=== PATIENT | female | born 1940 | race Caucasian/White ===

== ENCOUNTER 2016-12-29 14:28 | Inpatient (IN) | payer OTHER, MEDICARE ==
[2016-12-29] MEDS ORDERED: MAGNESIUM HYDROX 2400MG/30ML ORAL SUSPENSION 30 ML CUP PO PRN (16:40)
[2016-12-29] MEDS ORDERED: MAG HYDROX/AL HYDROX/SIMETH 30 ML UNIT-DOSE CUP PO PRN (16:40)
[2016-12-29] MEDS ORDERED: oxyCODONE HCL 5 MG TABLET PO PRN ×2 (16:49→16:51)
[2016-12-29] MEDS ORDERED: ONDANSETRON 4 MG/2 ML VIAL IVPB PRN (16:49)
[2016-12-29] MEDS ORDERED: ACETAMINOPHEN 325 MG TABLET (FP) ONE (17:10)
[2016-12-29] MEDS: ACETAMINOPHEN 325 MG TABLET (FP) PO SCH ×2 (17:15→22:26)
[2016-12-29] MEDS: FERROUS SO4 325 MG TABLET (FP) PO SCH (17:21)
[2016-12-29] MEDS: PANTOPRAZOLE 40 MG TABLET (FP) PO SCH (17:21)
[2016-12-29] MEDS: traMADol HCL 50 MG TABLET PO SCH ×2 (17:21→22:26)
[2016-12-29 17:59] VITALS: BMI 40.8
[2016-12-29 18:36] LABS: MCH 27.4 pg (25.7-33.7); MCHC 33.2 g/dl (32.0-36.0); MEAN CELL VOLUME 82.6 fl (80-96); PLATELET COUNT 310 K/MM3 (134-434); RDW 15.3 % (11.6-15.6)
[2016-12-29] MEDS ORDERED: PT OWN MED DRAWER 7, Y5N ONE (21:09)
[2016-12-29] MEDS: CELECOXIB 200 MG CAPSULE PO SCH (21:42)
[2016-12-29] MEDS: DOCUSATE SODIUM 100 MG CAPSULE (FP) PO SCH (21:43)
[2016-12-29] MEDS: ROSUVASTATIN CA 40 MG TABLET PO SCH (21:43)
[2016-12-29] MEDS: oxyCODONE HCL 10 MG SUSTAINED ACTING TABLET PO SCH (21:44)
[2016-12-29] MEDS: ASCORBIC ACID 500 MG TABLET (FP) PO SCH (21:45)
[2016-12-29] MEDS: SENNOSIDES/DOCUSATE COMBO (SENNA PLUS) TABLET (UD) PO SCH (21:45)
[2016-12-29] MEDS: CIPROFLOXACIN 500 MG TABLET (RESTRICTED TO ID) PO SCH (21:50)
[2016-12-29] MEDS: SODIUM CHLORIDE 1,000 ML IV SCH (22:27)
[2016-12-30] MEDS: ACETAMINOPHEN 325 MG TABLET (FP) PO SCH ×3 (05:54→23:13)
[2016-12-30] MEDS: traMADol HCL 50 MG TABLET PO SCH ×4 (05:57→23:44)
[2016-12-30] MEDS: LEVOTHYROXINE NA 25 MCG TABLET (FP) PO SCH (06:10)
--- NOTE | 2016-12-30 07:45 | HP ---
Admitting History and Physical - Admission Chief Complaint: Left periprosthetic hip fracture History of Present Illness: 76 year old female presents in regard to her left hip. She is status post a left posterior total hip arthroplasty by Dr. Dixon approximately 3 weeks ago. A few days ago, patient fell onto her left hip. She presented to the Emergency Department and was diagnosed with a periprosthetic hip fracture. History Source: Patient - Past Medical History Cardiovascular: Yes: HTN, Hyperlipdemia ...: No Psych: Yes: Depression, Other (Insomnia) Endocrine: Yes: Hypothyroidism - Past Surgical History Additional Past Surgical History: Left posterior total hip arthroplasty approximately 3 weeks ago - Dr. Dixon See written H&P for additional surgical history - Smoking History Smoking history: Never smoked Have you smoked in the past 12 months: No - Alcohol/Substance Use Hx Alcohol Use: No Home Medications - Allergies Allergies/Adverse Reactions: Allergies Allergy/AdvReac Type Severity Reaction Status Date / Time No Known Allergies Allergy Verified 12/29/16 16:08 - Home Medications Home Medications: Ambulatory Orders Ambien 10 mg PO HS 12/29/16 Ciprofloxacin HCl 500 mg PO BID 12/29/16 Crestor 40 mg PO DAILY 12/29/16 Hydrochlorothiazide 25 mg PO DAILY 12/29/16 Lexapro - 20 mg PO DAILY 12/29/16 Lisinopril 40 mg PO DAILY 12/29/16 Oxycodone HCl 5 mg PO PRN PRN 12/29/16 Oxycodone HCl 10 mg PO PRN PRN 12/29/16 Synthroid 25 mcg PO DAILY 12/29/16 Toprol Xl 50 mg PO DAILY 12/29/16 Wellbutrin Xl 150 mg PO DAILY 12/29/16 Review of Systems - Review of Systems Musculoskeletal: reports: Extremity Pain (Left hip) Physical Examination Vital Signs: Vital Signs Temperature 98.1 F 12/30/16 06:30 Pulse Rate 62 12/30/16 06:30 Respiratory Rate 18 12/30/16 06:30 Blood Pressure 126/48 12/30/16 06:30 O2 Sat by Pulse Oximetry (%) 95 12/30/16 06:30 Constitutional: Yes: Well Nourished, No Distress Eyes: Yes: Conjunctiva Clear HENT: Yes: Atraumatic, Normocephalic Neck: Yes: Supple Cardiovascular: Yes: Regular Rate and Rhythm Respiratory: Yes: Regular Gastrointestinal: Yes: Soft ...Rectal Exam: Yes: Deferred Musculoskeletal: Yes: Other (Pain and swelling of left hip, inability to ambulate) Labs: CBC, BMP 12/29/16 18:05 Assessment/Plan 76 year old female status post a mechanical fall resulting in a left periprosthetic hip fracture. She is status post a left posterior total hip arthroplasty by Dr. Dixon approximately 3 weeks ago. Proceed with left hip revisional arthroplasty with ORIF left periprosthetic hip fracture.
--- NOTE | 2016-12-30 08:02 | HP ---
Admitting History and Physical - Admission Chief Complaint: 76yo female s/p L MARINA @ [facility] ~3wks ago. Was doing well in rehab , about to be discharged home, slipped when getting up to go to bathroom late at night. Fell and sustained a left periprosthetic femur fx. Pt has PMH of HTN , HLD, bilateral hip replacements, carpal tunnel surgery. Medical history and preop clearance notes reviewed in [facility] EMR. History Source: Patient, Medical Record, Transfer Record - Past Medical History Cardiovascular: Yes: HTN, Hyperlipdemia ...: No Psych: Yes: Depression, Other (Insomnia) Endocrine: Yes: Hypothyroidism - Past Surgical History Additional Past Surgical History: Left posterior total hip arthroplasty approximately 3 weeks ago - Dr. Dixon See written H&P for additional surgical history - Smoking History Smoking history: Never smoked Have you smoked in the past 12 months: No - Alcohol/Substance Use Hx Alcohol Use: No Home Medications - Allergies Allergies/Adverse Reactions: Allergies Allergy/AdvReac Type Severity Reaction Status Date / Time No Known Allergies Allergy Verified 12/29/16 16:08 - Home Medications Home Medications: Ambulatory Orders Ambien 10 mg PO HS 12/29/16 Ciprofloxacin HCl 500 mg PO BID 12/29/16 Crestor 40 mg PO DAILY 12/29/16 Hydrochlorothiazide 25 mg PO DAILY 12/29/16 Lexapro - 20 mg PO DAILY 12/29/16 Lisinopril 40 mg PO DAILY 12/29/16 Oxycodone HCl 5 mg PO PRN PRN 12/29/16 Oxycodone HCl 10 mg PO PRN PRN 12/29/16 Synthroid 25 mcg PO DAILY 12/29/16 Toprol Xl 50 mg PO DAILY 12/29/16 Wellbutrin Xl 150 mg PO DAILY 12/29/16 Physical Examination Vital Signs: Vital Signs Temperature 98.1 F 12/30/16 06:30 Pulse Rate 62 12/30/16 06:30 Respiratory Rate 18 12/30/16 06:30 Blood Pressure 126/48 12/30/16 06:30 O2 Sat by Pulse Oximetry (%) 95 12/30/16 06:30 Constitutional: Yes: Well Nourished, No Distress, Calm Eyes: Yes: WNL, Conjunctiva Clear HENT: Yes: WNL, Atraumatic, Normocephalic Neck: Yes: WNL, Supple Cardiovascular: Yes: WNL, Regular Rate and Rhythm Respiratory: Yes: WNL, Regular Gastrointestinal: Yes: WNL, Soft, Abdomen, Obese ...Rectal Exam: Yes: Deferred Renal/: Yes: WNL Musculoskeletal: Yes: Joint Stiffness, Joint Swelling, Muscle Pain Extremities: Yes: External Rotation, Shortened Edema: No Peripheral Pulses WNL: Yes Integumentary: Yes: WNL Wound/Incision: Yes: Clean/Dry, Well Approximated, Steri Strips, Open to air Neurological: Yes: WNL, Alert, Oriented ...Motor Strength: WNL Psychiatric: Yes: WNL, Alert, Oriented Labs: CBC, BMP 12/29/16 18:05 Imaging - Results X-ray: Image Reviewed Problem List - Problems (1) Closed traumatic displaced fracture of shaft of left femur Code(s): S72.302A - UNSP FRACTURE OF SHAFT OF LEFT FEMUR, INIT FOR CLOS FX Qualifiers: Encounter type: initial encounter Qualified Code(s): S72.302A - Unspecified fracture of shaft of left femur, initial encounter for closed fracture Assessment/Plan 76yo female with left femoral shaft fracture. Plan for ORIF of left femur and revision of hip replacement
[2016-12-30] MEDS ORDERED: WELLBUTRIN 150 MG PO SCH (10:00)
[2016-12-30] MEDS ORDERED: LEXAPRO PO SCH (10:00)
[2016-12-30] MEDS ORDERED: CRESTOR 40 MG PO SCH (10:00)
[2016-12-30] MEDS ORDERED: TOPROL 50 MG PO SCH (10:00)
[2016-12-30] MEDS ORDERED: LISINOPRIL 40 MG PO SCH (10:00)
[2016-12-30] MEDS ORDERED: SYNTHROID 25 MCG PO SCH (10:00)
[2016-12-30] MEDS ORDERED: HYDROCHLOROTHIAZIDE 25 MG PO SCH (10:00)
[2016-12-30] MEDS ORDERED: MIDAZOLAM HCL 2 MG/2 ML SINGLE DOSE VIAL ONE ×3 (11:16→13:05)
[2016-12-30] MEDS ORDERED: DEXAMETHASONE SOD PHOSPHATE/PF 10 MG/ML SDV ONE (11:16)
[2016-12-30] MEDS ORDERED: BUPIVACAINE HCL/PF (5 MG/ML) 30 ML VIAL IJ ONE (11:16)
[2016-12-30] MEDS ORDERED: ceFAZolin SODIUM 1 GM VIAL ONE ×2 (11:25→16:29)
[2016-12-30] MEDS ORDERED: VANCOMYCIN 1,000 MG VIAL (RESTRICTED TO ID ONLY) ONE ×2 (11:25→11:50)
[2016-12-30] MEDS ORDERED: TRANEXAMIC ACID 1000 MG/10 ML VIAL ONE (11:57)
[2016-12-30] MEDS ORDERED: ROPIVICAINE 0.2%/MORPH PF/KETOROLAC - 51ML DISP.SYRINGE IA ONE ×2 (13:21→19:13)
[2016-12-30] MEDS ORDERED: ROCURONIUM BROMIDE 50 MG/5 ML VIAL ONE (13:28)
[2016-12-30] MEDS ORDERED: HYDROmorphone HCL/PF 1 MG/ML VIAL (FOR PYXIS CHARGING ONLY) ONE (14:33)
[2016-12-30 17:23] LABS: CALCIUM 9.2 mg/dl (8.4-10.2); COCKROFT - GAULT 74.8
[2016-12-30] MEDS ORDERED: DESFLURANE GAS 240 ML BOTTLE IH ONE ×2 (18:17)
[2016-12-30] MEDS ORDERED: VANCOMYCIN 1,000 MG VIAL (RESTRICTED TO ID ONLY) IVPB ONE (19:13)
[2016-12-30] MEDS ORDERED: TRANEXAMIC ACID 1000 MG/10 ML VIAL IVPB ONE (19:14)
[2016-12-30] MEDS: CELECOXIB 200 MG CAPSULE PO SCH (20:11)
[2016-12-30] MEDS: CIPROFLOXACIN 500 MG TABLET (RESTRICTED TO ID) PO SCH ×2 (20:11→23:44)
[2016-12-30] MEDS: DOCUSATE SODIUM 100 MG CAPSULE (FP) PO SCH ×2 (20:11→23:44)
[2016-12-30] MEDS: FERROUS SO4 325 MG TABLET (FP) PO SCH (20:11)
[2016-12-30] MEDS: LISINOPRIL 20 MG TABLET (FP) PO SCH (20:12)
[2016-12-30] MEDS: oxyCODONE HCL 10 MG SUSTAINED ACTING TABLET PO SCH ×2 (20:12→23:45)
[2016-12-30] MEDS: ESCITALOPRAM OXALATE 20 MG TABLET (FP) PO SCH (20:12)
[2016-12-30] MEDS: HYDROCHLOROTHIAZIDE 25 MG TABLET (FP) PO SCH (20:12)
[2016-12-30] MEDS: LACTATED RINGERS SOLUTION 1,000 ML IV SCH ×2 (20:13→22:29)
[2016-12-30] MEDS: METOPROLOL SUCCINATE 50 MG TAB.SR.24H (FP) PO SCH (20:13)
[2016-12-30] MEDS: PANTOPRAZOLE 40 MG TABLET (FP) PO SCH (20:13)
[2016-12-30] MEDS: ASCORBIC ACID 500 MG TABLET (FP) PO SCH ×2 (20:13→23:45)
[2016-12-30] MEDS: SODIUM CHLORIDE 1,000 ML IV SCH (20:14)
[2016-12-30] MEDS ORDERED: ACETAMINOPHEN 1000 MG/100 ML VIAL (NON FORMULARY) IVPB ONE (20:21)
[2016-12-30] MEDS ORDERED: ONDANSETRON 4 MG/2 ML VIAL IVPUSH PRN (20:21)
[2016-12-30] MEDS ORDERED: PROMETHAZINE HCL 25 MG/1 ML VIAL IVPUSH PRN (20:21)
[2016-12-30] MEDS ORDERED: VANCOMYCIN 1,500 MG in DEXTROSE 5%-WATER - 250 ML IVPB ONE (21:03)
--- NOTE | 2016-12-30 21:14 | OP ---
Operative Note - Note: Operative Date: 12/30/16 Pre-Operative Diagnosis: Left proximal femoral shaft traumatic fracture, periprosthetic Operation: ORIF left femur fracture, revision of loose hip prosthesis with longer stem Post-Operative Diagnosis: Same as Pre-op Surgeon: Danie Osorio Slip Cover Operator: Vanessa Mccormick Anesthesia: General Estimated Blood Loss (mls): 600
[2016-12-30] MEDS: SENNOSIDES/DOCUSATE COMBO (SENNA PLUS) TABLET (UD) PO SCH (23:45)
[2016-12-30] MEDS: ROSUVASTATIN CA 40 MG TABLET PO SCH (23:45)
[2016-12-30] MEDS: GABAPENTIN 300 MG CAPSULE (FP) PO SCH (23:45)
[2016-12-31] MEDS: CEFAZOLIN 2 GM in DEXTROSE 5%-WATER - 50 ML IVPB SCH ×2 (02:20→09:38)
[2016-12-31] MEDS: traMADol HCL 50 MG TABLET PO SCH ×4 (06:15→23:50)
[2016-12-31] MEDS: ACETAMINOPHEN 325 MG TABLET (FP) PO SCH ×4 (06:15→23:50)
[2016-12-31] MEDS: LEVOTHYROXINE NA 25 MCG TABLET (FP) PO SCH (06:16)
[2016-12-31 08:10] LABS: MCH 27.9 pg (25.7-33.7); MEAN CELL VOLUME 84.5 fl (80-96); PLATELET COUNT 277 K/MM3 (134-434); RDW 14.6 % (11.6-15.6); WHITE BLOOD COUNT 15.2 K/mm3 (4.0-10.8)
[2016-12-31 08:18] LABS: ANION GAP 8 (8-16); CALCIUM 8.7 mg/dl (8.4-10.2); CO2 27 mmol/L (22-28); CREATININE 1.5 mg/dl (0.6-1.3); GLUCOSE,RANDOM 124 mg/dl (74-106)
[2016-12-31] MEDS: FERROUS SO4 325 MG TABLET (FP) PO SCH ×3 (08:20→16:47)
--- NOTE | 2016-12-31 09:20 | PN ---
Progress Note (short form) - Note Progress Note: Pt seen and examined. Comfortable. Rec'd 1U PRBCs last night Afebrile Selected Entries 12/31/16 06:00 Temperature 98.8 F Temperature Oral Source Pulse Rate 110 H Respiratory 20 Rate Blood Pressure 144/51 Laboratory Tests 12/31/16 12/31/16 07:30 07:30 WBC 15.2 H D Hgb 9.5 L D Hct 28.7 L Plt Count 277 Sodium 140 Potassium 4.5 Chloride 105 Carbon Dioxide 27 Anion Gap 8 BUN 31 H D Creatinine 1.5 H D Random Glucose 124 H Calcium 8.7 Gen: NAD LLE: c/d/i, 12/03 GS/TA/EHL/FHL SILT L2-S1. Toes warm A/P 76yo female POD#1 s/p ORIF left femur 1. PT/OOB - WBAT LLE 2. Transfuse 2nd unit PRBCs after PT today 3. After transfusion, continue NS @ 125cc/hr continuous until tomorrow 4. Plan for D/C to SNF Tuesday Problem List - Problems (1) Closed traumatic displaced fracture of shaft of left femur Code(s): S72.302A - UNSP FRACTURE OF SHAFT OF LEFT FEMUR, INIT FOR CLOS FX Qualifiers: Encounter type: initial encounter Qualified Code(s): S72.302A - Unspecified fracture of shaft of left femur, initial encounter for closed fracture
[2016-12-31] MEDS ORDERED: PT OWN MED DRAWER 7, Y5N ONE (09:31)
[2016-12-31] MEDS: ESCITALOPRAM OXALATE 20 MG TABLET (FP) PO SCH (09:36)
[2016-12-31] MEDS: HYDROCHLOROTHIAZIDE 25 MG TABLET (FP) PO SCH (09:36)
[2016-12-31] MEDS: oxyCODONE HCL 10 MG SUSTAINED ACTING TABLET PO SCH ×2 (09:36→22:05)
[2016-12-31] MEDS: PANTOPRAZOLE 40 MG TABLET (FP) PO SCH (09:36)
[2016-12-31] MEDS: DOCUSATE SODIUM 100 MG CAPSULE (FP) PO SCH ×2 (09:36→22:05)
[2016-12-31] MEDS: MULTIVITAMINS (DAILY MVI) TABLET (FP) PO SCH (09:36)
[2016-12-31] MEDS: GABAPENTIN 300 MG CAPSULE (FP) PO SCH ×2 (09:37→22:06)
[2016-12-31] MEDS: ASCORBIC ACID 500 MG TABLET (FP) PO SCH ×2 (09:37→22:07)
[2016-12-31] MEDS: APIXABAN 2.5 MG TABLET PO SCH ×2 (09:37→22:06)
[2016-12-31] MEDS: CIPROFLOXACIN 500 MG TABLET (RESTRICTED TO ID) PO SCH ×2 (09:37→22:07)
[2016-12-31] MEDS: METOPROLOL SUCCINATE 50 MG TAB.SR.24H (FP) PO SCH (09:37)
[2016-12-31] MEDS: LISINOPRIL 20 MG TABLET (FP) PO SCH (09:37)
[2016-12-31] MEDS: SODIUM CHLORIDE 1,000 ML IV SCH ×2 (09:50→16:48)
[2016-12-31] MEDS: LACTATED RINGERS SOLUTION 1,000 ML IV SCH ×2 (16:03→21:00)
[2016-12-31] MEDS: ROSUVASTATIN CA 40 MG TABLET PO SCH (22:06)
[2016-12-31] MEDS: SENNOSIDES/DOCUSATE COMBO (SENNA PLUS) TABLET (UD) PO SCH (22:09)
[2017-01-01] MEDS: traMADol HCL 50 MG TABLET PO SCH ×5 (06:47→23:00)
[2017-01-01] MEDS: ACETAMINOPHEN 325 MG TABLET (FP) PO SCH ×2 (06:47→11:23)
[2017-01-01] MEDS: LEVOTHYROXINE NA 25 MCG TABLET (FP) PO SCH (06:47)
[2017-01-01] MEDS: LISINOPRIL 20 MG TABLET (FP) PO SCH ×2 (06:50→10:07)
[2017-01-01 07:53] LABS: MCH 28.3 pg (25.7-33.7); MEAN CELL VOLUME 83.4 fl (80-96); MEAN PLT VOLUME 9.4 fl (7.5-11.1); PLATELET COUNT 234 K/MM3 (134-434); RDW 14.1 % (11.6-15.6); WHITE BLOOD COUNT 13.3 K/mm3 (4.0-10.8)
[2017-01-01] MEDS: FERROUS SO4 325 MG TABLET (FP) PO SCH ×3 (07:58→18:07)
[2017-01-01 07:59] LABS: CALCIUM 8.3 mg/dl (8.4-10.2); COCKROFT - GAULT 83.3; CREATININE 0.9 mg/dl (0.6-1.3)
[2017-01-01] MEDS: METOPROLOL SUCCINATE 50 MG TAB.SR.24H (FP) PO SCH (10:02)
[2017-01-01] MEDS: MULTIVITAMINS (DAILY MVI) TABLET (FP) PO SCH (10:02)
[2017-01-01] MEDS: DOCUSATE SODIUM 100 MG CAPSULE (FP) PO SCH ×2 (10:02→21:39)
[2017-01-01] MEDS: HYDROCHLOROTHIAZIDE 25 MG TABLET (FP) PO SCH (10:02)
[2017-01-01] MEDS: GABAPENTIN 300 MG CAPSULE (FP) PO SCH ×2 (10:03→21:40)
[2017-01-01] MEDS: ASCORBIC ACID 500 MG TABLET (FP) PO SCH ×2 (10:04→21:39)
[2017-01-01] MEDS: oxyCODONE HCL 10 MG SUSTAINED ACTING TABLET PO SCH ×2 (10:04→21:40)
[2017-01-01] MEDS: PANTOPRAZOLE 40 MG TABLET (FP) PO SCH (10:04)
[2017-01-01] MEDS: APIXABAN 2.5 MG TABLET PO SCH ×2 (10:07→21:39)
[2017-01-01] MEDS: ESCITALOPRAM OXALATE 20 MG TABLET (FP) PO SCH (10:07)
[2017-01-01] MEDS: CIPROFLOXACIN 500 MG TABLET (RESTRICTED TO ID) PO SCH ×2 (10:08→21:39)
[2017-01-01] MEDS: SODIUM CHLORIDE 1,000 ML IV SCH ×2 (10:08→19:22)
--- NOTE | 2017-01-01 12:16 | PN ---
Progress Note (short form) - Note Progress Note: Pt seen and examined. Comfortable. Appears confused. Rec'd 1U PRBCs last night Afebrile Selected Entries 01/01/17 01/01/17 01/01/17 06:00 08:06 09:01 Temperature 98.5 F Pulse Rate 88 93 H Respiratory 20 16 Rate Blood Pressure 183/68 151/51 O2 Sat by Pulse 96 96 98 Oximetry (%) Laboratory Tests 01/01/17 01/01/17 07:15 07:15 WBC 13.3 H Hgb 10.0 L Hct 29.5 L Sodium 134 L Potassium 4.3 Chloride 101 Carbon Dioxide 25 Anion Gap 8 BUN 20 H D Creatinine 0.9 D Random Glucose 104 Calcium 8.3 L Gen: NAD LLE: c/d/i, 12/03 GS/TA/EHL/FHL SILT L2-S1. Toes warm A/P 76yo female POD#2 s/p ORIF left femur 1. PT/OOB - WBAT LLE 2. Labs improved - d/c IVF 3. Plan for D/C to SNF Tuesday Problem List - Problems (1) Closed traumatic displaced fracture of shaft of left femur Code(s): S72.302A - UNSP FRACTURE OF SHAFT OF LEFT FEMUR, INIT FOR CLOS FX Qualifiers: Encounter type: initial encounter Qualified Code(s): S72.302A - Unspecified fracture of shaft of left femur, initial encounter for closed fracture
--- NOTE | 2017-01-01 19:03 | OP ---
DATE OF OPERATION: 12/30/2016 PREOPERATIVE DIAGNOSIS: Left traumatic femoral shaft fracture, periprosthetic fracture. POSTOPERATIVE DIAGNOSIS: Left traumatic femoral shaft fracture, periprosthetic fracture. PROCEDURE PERFORMED: Open reduction and internal fixation of left traumatic femoral shaft fracture; revision of left total hip replacement, femoral and acetabular components. SURGEON: Bryson Hendricks MD CENTRAL SERVICE TECH: STONEY Ozuna ANESTHESIA: General. ESTIMATED BLOOD LOSS: 600 mL. DISPOSITION: The patient was transferred to the PACU in stable condition. IMPLANTS USED: [employer] Zoroastrian Modular 155-mm femoral stem with plus 10 mm length proximal body. MDM acetabular liner. MDM head ball with plus 8 offset internal head. A 210-mm trochanteric claw plate. Four Dall-Miles cables. INDICATIONS: This is a 76-year-old female who underwent a total hip arthroplasty at [facility], performed by another surgeon, in early November 2016. She did well and postoperatively was discharged to a rehab facility, where she recovered well. Shortly before her discharge home, she slipped while getting up to go to the bathroom in the middle of the night and landed on her left hip, causing a traumatic femoral shaft fracture. The patient was unable to ambulate and was taken to [facility]. It was determined that she had sustained the fracture. In addition, the hip prosthesis had loosened because of this. The initial surgeon did not feel comfortable doing the full revision and open reduction and internal fixation of this fracture. So contacted Dr. Hendricks, who accepted the case. The patient was subsequently transferred to [facility] for definitive treatment. In the hospital, she was seen and examined by Dr. Hendricks as an inpatient and the treatment plan was discussed. This would involve open reduction and internal fixation of the femoral shaft, as well as replacement of the femoral prosthesis of the hip replacement. In addition, the plan was to revise the acetabulum to accept an MDM dual-mobility head for reduction of dislocation risk. The risks, benefits and alternatives to the procedure were explained to the patient, and the patient desired to have the procedure performed. DESCRIPTION OF PROCEDURE: On the day of surgery, the patient was taken to the operating room and placed on the OR table. Anesthesia was administered by the anesthesiologist. The patient was then positioned in the lateral decubitus position on the table and all bony prominences were padded. An axillary roll was placed. The left hip was then prepped and draped in the usual sterile fashion. Intravenous Ancef and vancomycin were given for infection prophylaxis. A surgical time-out was then performed with the team, and the patient's identity, procedure, side, availability of implants and the administration of antibiotics were confirmed. The old surgical incision was then reopened. Immediately encountered was a large amount of fibrous skin tissue. Dissection was carried down sharply through this scar tissue. The soft tissue planes were extremely difficult to visualize due to all the scarring. There was no [place] tribe tissue to orient oneself with. So the incision was extended distally in line with the femoral shaft. We incised through the subcutaneous fat down to the IT band and fascia. We then incised through this fascia down to some scarred gluteus sylvia muscle and the greater trochanter of the femur. Dissection was carried distally and the proximal femoral shaft was encountered. The fracture lines were palpable and it was found that the femoral shaft was highly comminuted, much worse than it appeared on the pre-op x-ray. The entire proximal femoral shaft below the lesser trochanter down to the tip of the prosthesis had split in half, leaving both anterior and posterior halves. The posterior half had loosened from the prosthesis and was mobile. The anterior half had some attachment to the hip prosthesis. There were also several shards of bone distally that had become butterfly fragments and a crack extended below the tip of the stem down the femoral shaft. For this reason, it was necessary to extend the incision approximately another 30 cm down the lateral aspect of the thigh, approaching the knee, in order to fully visualize the femoral shaft and the distal extent of the fracture for proper Attention was then turned to fixation of the femur. The hip was dislocated using traction and internal rotation, as well as direct traction on the femoral neck with a bone hook. Once it was dislocated, the femoral head was removed. The instrumentation from the [place] set was used to easily remove the existing femoral stem, without the need for any additional osteotomy or use of osteotomes. Once the stem was removed, we examined the femur and again confirmed that it had split in the proximal shaft and was high comminuted distally. A reamer from the [place] Zoroastrian Modular set was placed down the femoral shaft in order to stabilize the femur as a provisional intramedullary sailaja, and from here fracture reduction clamps were used to align all the bone fragments in place to reduce the fracture provisionally. Once an anatomic reduction was achieved, a [place] trochanteric claw plate was placed over the lateral aspect of the femur and affixed to the bone with Dall-Miles cables. The length of the plate was chosen to extend beyond the distal aspect of the comminuted region and overall 4 cables were used to affix the plate to the fracture. Care was taken to assure that no soft tissue was interposed between the cables and bone. The sciatic nerve was palpated at multiple points throughout the fixation to make sure that it was not inadvertently injured or interposed with the hardware. Once the plate was applied, the femoral shaft was found to be reconstructed into an anatomic shape and from here reaming commenced. Successively larger reamers from the [place] Zoroastrian Modular set were used to ream the intramedullary canal for placement of a long revision stem with diaphyseal fixation. The length of the stem was chosen to bypass the entire length of the fractured area of the femur. Once we found that there was end-ostial contact and chatter when reaming, that was determined to be the final reamer size, and this correlated with the 14-mm final stem. After the reamer was removed, the medullary cavity was irrigated with pulse lavage and normal saline. The final diaphyseal fixation stem was impacted in place and had a good fit and bony contact. Because of the soft tissue dissection required to perform the revision and the already increased chance of dislocation after a revision hip procedure, we elected to revise the acetabular component to an MDM liner so that a bipolar head ball could be used to decrease the dislocation risk. Using a drill and cancellous screw, the existing polyethylene liner in the acetabular component was removed. The acetabular component was examined and found to be well-fixed and well-oriented. A screw had been placed during the initial surgery for provisional fixation and that was intact. Soft tissue and scar were dissected around the rim of the acetabular component to expose a free and clean edge. From here, the MDM liner was impacted in place and was found to be well-fixed. Attention was then turned back to the femur. The proximal canal was then reamed for placement of the proximal body. We then attached a trial proximal body and a trial head and reduced the hip. It was initially found to be unstable posteriorly. So we trialed various offset heads, various length proximal bodies and various positions of femoral neck anteversion until a stable configuration was found. From here, an intraoperative radiograph was taken and showed satisfactory length of the component past the distal extent of the fractures in the femur. The stem also extended past the distal aspect of the trochanteric claw plate. We also found that the plate and cables had held an anatomic reduction of the femur and the fracture lines were barely visible. The proximal trial stem and head were then extracted, and the real femoral components were assembled and inserted into the femoral canal, and found to be stable, although there was an increase in leg length, but this was necessary due to the extensive soft tissue dissection necessary to perform the open reduction and internal fixation. This decreased soft tissue tension would leave the hip unstable at the previous leg length. After the final components were placed, the hip was again checked for stability and the final components were taken through a range of motion. The hip was found to be stable at 90 degrees of flexion, with 20 degrees of adduction and 40 degrees of internal rotation. The patient reached full extension and had no instability anteriorly. The wound was then irrigated with pulsatile lavage. A 3-minute dilute Betadine lavage was performed according to the [facility] protocol. The wound was then irrigated again with pulsatile lavage. Overall 6 liters of normal saline with 1 gram of Ancef per liter were used during the procedure. The wound was then closed in a layered fashion. Wound closure was started by repairing what was left of the posterior capsule and short external rotators with a number 2 FiberWire in a Krack[place] configuration, attached to a soft tissue cuff that was remaining on the posterior aspect of the greater trochanter. This repair was then reinforced with a number 0 V-Loc 180 barbed suture. Next, number 2 FiberWire was used to reattach the lateral musculature to the lateral femoral shaft to cover the plate with soft tissue. This was also reinforced with number 0 V-Loc 180 suture. Next, a number 0 V-Loc 180 suture was used to close the fascia. The deep subcutaneous tissue was closed with 1 Vicryl sutures. 2-0 Vicryl was used for the superficial subcutaneous tissues. The skin was closed using both 3-0 V-Loc 90 suture in a running subcuticular fashion and Dermabond skin adhesive. Once this was completed, sterile Aquacel dressing was applied. The patient was then awakened and taken to the PACU in stable condition. She was placed in an abductor pillow and will have posterior hip dislocation precautions in place throughout her stay. This case will be billed with modifier 22 because it was more complex than a standard 00953 revision. The patient had obesity of the proximal thigh, which required an increase in incision length to approximately 45 cm compared to the usual incision length of 20 to 30 cm for a standard hip revision. In addition, the complexity of the fracture, the distal extent of the fracture and the amount of soft tissue dissection needed due to the distal dissection and soft tissue thickness led to an increase in estimated blood loss. Our blood loss was approximately 600 mL, which is, in my estimation, twice that of the 300 mL that may be experienced during a standard revision. For this we used an Aquamantys Bipolar Sealing Device during the case to coagulate bleeding soft tissue. In addition, the patient received 2 units of packed red blood cells after the surgery. Finally, the case involved both a revision of the hip replacement (which was loose due to a femoral shaft fracture) as well as open reduction and internal fixation of an extensively comminuted femoral shaft fracture which extended distally beyond the length of the existing hip prosthesis. This required a significant amount of time for fixation of the fracture prior to the actual revision of the hip. The overall surgical time was 6 hours, which is in contrast to the 2 to 3 hours which it would take for a simple femoral stem revision without fixation of the fracture. For these reasons, we are billing with modifier 22. BRYSON HENDRICKS M.D. [id number]
[2017-01-01] MEDS: LACTATED RINGERS SOLUTION 1,000 ML IV SCH ×2 (19:21→21:38)
[2017-01-01] MEDS ORDERED: PT OWN MED DRAWER 7, Y5N ONE (21:24)
[2017-01-01] MEDS: ROSUVASTATIN CA 40 MG TABLET PO SCH (21:39)
[2017-01-01] MEDS: SENNOSIDES/DOCUSATE COMBO (SENNA PLUS) TABLET (UD) PO SCH (21:39)
[2017-01-02] MEDS: traMADol HCL 50 MG TABLET PO SCH ×4 (04:11→23:41)
[2017-01-02] MEDS: LEVOTHYROXINE NA 25 MCG TABLET (FP) PO SCH (07:01)
[2017-01-02] MEDS: FERROUS SO4 325 MG TABLET (FP) PO SCH ×3 (08:00→19:28)
[2017-01-02 08:44] LABS: MCH 28.6 pg (25.7-33.7); MCHC 33.6 g/dl (32.0-36.0); MEAN CELL VOLUME 85.2 fl (80-96); MEAN PLT VOLUME 9.4 fl (7.5-11.1); PLATELET COUNT 309 K/MM3 (134-434); RDW 14.7 % (11.6-15.6); WHITE BLOOD COUNT 16.3 K/mm3 (4.0-10.8)
[2017-01-02 08:49] LABS: ANION GAP 10 (8-16); CALCIUM 8.7 mg/dl (8.4-10.2); CO2 30 mmol/L (22-28); CREATININE 0.9 mg/dl (0.6-1.3); GLUCOSE,RANDOM 96 mg/dl (74-106)
[2017-01-02] MEDS: APIXABAN 2.5 MG TABLET PO SCH ×2 (10:00→21:23)
[2017-01-02] MEDS: MULTIVITAMINS (DAILY MVI) TABLET (FP) PO SCH (10:00)
[2017-01-02] MEDS: DOCUSATE SODIUM 100 MG CAPSULE (FP) PO SCH ×2 (10:00→21:23)
[2017-01-02] MEDS: HYDROCHLOROTHIAZIDE 25 MG TABLET (FP) PO SCH (10:00)
[2017-01-02] MEDS: ASCORBIC ACID 500 MG TABLET (FP) PO SCH ×2 (10:00→21:18)
[2017-01-02] MEDS: METOPROLOL SUCCINATE 50 MG TAB.SR.24H (FP) PO SCH (10:00)
[2017-01-02] MEDS: GABAPENTIN 300 MG CAPSULE (FP) PO SCH (10:00)
[2017-01-02] MEDS: PANTOPRAZOLE 40 MG TABLET (FP) PO SCH (10:00)
[2017-01-02] MEDS: ESCITALOPRAM OXALATE 20 MG TABLET (FP) PO SCH (10:00)
[2017-01-02] MEDS: LISINOPRIL 20 MG TABLET (FP) PO SCH (10:00)
[2017-01-02] MEDS: oxyCODONE HCL 10 MG SUSTAINED ACTING TABLET PO SCH ×2 (10:00→21:22)
[2017-01-02] MEDS: SODIUM CHLORIDE 1,000 ML IV SCH ×2 (19:28→19:29)
[2017-01-02] MEDS: LACTATED RINGERS SOLUTION 1,000 ML IV SCH ×2 (19:29→21:23)
[2017-01-02] MEDS: CIPROFLOXACIN 500 MG TABLET (RESTRICTED TO ID) PO SCH ×2 (19:29→21:31)
[2017-01-02] MEDS: ROSUVASTATIN CA 40 MG TABLET PO SCH (21:18)
[2017-01-02] MEDS: SENNOSIDES/DOCUSATE COMBO (SENNA PLUS) TABLET (UD) PO SCH (21:20)
[2017-01-02] MEDS ORDERED: PT OWN MED DRAWER 7, Y5N ONE (21:29)
--- NOTE | 2017-01-02 23:16 | PN ---
Progress Note (short form) - Note Progress Note: Pt seen and examined. Comfortable. Confusion resolved - lucid tonight. Afebrile Selected Entries 01/02/17 01/02/17 14:09 20:03 Temperature 98.6 F Respiratory 18 18 Rate Respiratory Non-Labored Effort Blood Pressure 159/61 Blood Pressure Sitting Position O2 Sat by Pulse 94 L 94 L Oximetry (%) Laboratory Tests 01/02/17 01/02/17 06:00 06:00 WBC 16.3 H Hgb 10.5 L Hct 31.3 L Plt Count 309 D Sodium 135 L Potassium 4.3 Chloride 95 L Carbon Dioxide 30 H Anion Gap 10 BUN 17 Creatinine 0.9 Random Glucose 96 Calcium 8.7 Gen: NAD LLE: c/d/i, 12/03 GS/TA/EHL/FHL SILT L2-S1. Toes warm A/P 76yo female POD#4 s/p ORIF left femur 1. PT/OOB - WBAT LLE 2. Plan for D/C to SNF Tuesday Problem List - Problems (1) Closed traumatic displaced fracture of shaft of left femur Code(s): S72.302A - UNSP FRACTURE OF SHAFT OF LEFT FEMUR, INIT FOR CLOS FX Qualifiers: Encounter type: initial encounter Qualified Code(s): S72.302A - Unspecified fracture of shaft of left femur, initial encounter for closed fracture
[2017-01-03] MEDS: traMADol HCL 50 MG TABLET PO SCH (05:27)
[2017-01-03 06:05] VITALS: BP 135/47; PULSE 87; TEMP 99.2
[2017-01-03] MEDS: LEVOTHYROXINE NA 25 MCG TABLET (FP) PO SCH (06:08)
[2017-01-03] MEDS: FERROUS SO4 325 MG TABLET (FP) PO SCH (08:00)
[2017-01-03 08:29] LABS: BASOPHIL 0.6 % (0-2.0); EOSINOPHIL 2.3 % (0-4.5); MCH 27.3 pg (25.7-33.7); MCHC 32.4 g/dl (32.0-36.0); MEAN CELL VOLUME 84.2 fl (80-96); MEAN PLT VOLUME 8.9 fl (7.5-11.1); PLATELET COUNT 297 K/MM3 (134-434); RDW 14.8 % (11.6-15.6); WHITE BLOOD COUNT 13.2 K/mm3 (4.0-10.8)
--- NOTE | 2017-01-03 08:51 | PN ---
Progress Note (short form) - Note Progress Note: Pt seen and examined. Comfortable. Confusion resolved. Afebrile Selected Entries 01/03/17 01/03/17 06:00 06:03 Temperature 99.2 F Pulse Rate 87 Respiratory 17 Rate Blood Pressure 135/47 O2 Sat by Pulse 94 L Oximetry (%) Oxygen Delivery Room Air Method Laboratory Tests 01/03/17 01/03/17 07:21 07:21 WBC 13.2 H Hgb 9.5 L Hct 29.2 L Plt Count 297 Sodium Pending Potassium Pending Chloride Pending Gen: NAD LLE: c/d/i, 12/03 GS/TA/EHL/FHL SILT L2-S1. Toes warm A/P 76yo female POD#5 s/p ORIF left femur 1. PT/OOB - WBAT LLE 2. D/C to SNF today if bed available Problem List - Problems (1) Closed traumatic displaced fracture of shaft of left femur Code(s): S72.302A - UNSP FRACTURE OF SHAFT OF LEFT FEMUR, INIT FOR CLOS FX Qualifiers: Encounter type: initial encounter Qualified Code(s): S72.302A - Unspecified fracture of shaft of left femur, initial encounter for closed fracture
--- NOTE | 2017-01-03 08:58 | DS ---
Physical Examination Vital Signs: Vital Signs Temperature 99.2 F 01/03/17 06:00 Pulse Rate 87 01/03/17 06:00 Respiratory Rate 17 01/03/17 08:10 Blood Pressure 135/47 01/03/17 06:00 O2 Sat by Pulse Oximetry (%) 94 L 01/03/17 08:10 Labs: CBC, BMP 01/03/17 07:21 Discharge Summary Reason For Visit: LEFT PERIPROSTHETIC HIP FRACTURE Current Active Problems Closed traumatic displaced fracture of shaft of left femur (Acute) Procedures: Principal: ORIF left femur, total hip revision Hospital Course: Admitted for elective surgery. Procedure performed without complications. Pt received postoperative antibiotic prophylaxis and DVT ppx. Ambulated with physical therapy. Stable for discharge home with outpatient followup. - Instructions Diet, Activity, Other Instructions: Dr Osorio - Hip Replacement Instructions Keep the Aquacel dressing on until removed by Dr. Osorio in 10-14 days - it is antibacterial and waterproof and you can shower with it on. Call the office for a follow-up appointment with Dr. Osorio in 10-14 days. Take ELIQUIS twice daily for 30 days to prevent blood clots in your legs. Take one Pantoprazole 40mg daily for 6 weeks to protect against heartburn and ulcers. For pain: *Mild pain (1-3/10): Take 1 Tramadol tablet every 4 hours as needed. Moderate pain (4-6/10): Take 1 Tramadol tablet and 1 Oxycodone 5mg tablet every 4 hours as needed. Severe pain (7-10/10): Take 1 Tramadol tablet and 1 Oxycodone 10mg tablets every 4 hours as needed. Activity: You can put as much weight on the operative leg as you want. Follow standard [employer]ER[employer] HIP PRECAUTIONS as directed by your therapist. Always use a walker or cane for balance and to prevent falls. Disposition: [facility] - Home Medications Comprehensive Discharge Medication List: Ambulatory Orders Ambien 10 mg PO HS 12/29/16 Ciprofloxacin HCl 500 mg PO BID 12/29/16 Crestor 40 mg PO DAILY 12/29/16 Hydrochlorothiazide 25 mg PO DAILY 12/29/16 Lexapro - 20 mg PO DAILY 12/29/16 Lisinopril 40 mg PO DAILY 12/29/16 Oxycodone HCl 5 mg PO PRN PRN 12/29/16 Oxycodone HCl 10 mg PO PRN PRN 12/29/16 Synthroid 25 mcg PO DAILY 12/29/16 Toprol Xl 50 mg PO DAILY 12/29/16 Wellbutrin Xl 150 mg PO DAILY 12/29/16 Apixaban [Eliquis -] 2.5 mg PO BID #60 tablet 01/03/17 Ascorbic Acid [Vitamin C -] 500 mg PO BID #60 tablet 01/03/17 Docusate Sodium [Colace -] 100 mg PO BID #60 tab 01/03/17 Ferrous Sulfate [Feosol] 325 mg PO TIDCM #60 tab 01/03/17 Multivitamins [Multivit ([facility] Formul[facility])] 1 tab PO DAILY #60 tab 01/03/17 Pantoprazole Sodium [Protonix -] 40 mg PO DAILY #40 tab 01/03/17 Sennosides/Docusate Sodium [Pericolace -] 2 tablet PO HS #60 tablet 01/03/17 Tramadol HCl [Ultram -] 50 mg PO Q4H PRN #60 tablet MDD 6 01/03/17
[2017-01-03 09:20] LABS: CALCIUM 8.7 mg/dl (8.4-10.2); COCKROFT - GAULT 74.8
[2017-01-03] MEDS ORDERED: PT OWN MED DRAWER 7, Y5N ONE (09:46)
[2017-01-03] MEDS: DOCUSATE SODIUM 100 MG CAPSULE (FP) PO SCH (09:50)
[2017-01-03] MEDS: CIPROFLOXACIN 500 MG TABLET (RESTRICTED TO ID) PO SCH (09:50)
[2017-01-03] MEDS: APIXABAN 2.5 MG TABLET PO SCH (09:50)
[2017-01-03] MEDS: LISINOPRIL 20 MG TABLET (FP) PO SCH (09:51)
[2017-01-03] MEDS: ESCITALOPRAM OXALATE 20 MG TABLET (FP) PO SCH (09:51)
[2017-01-03] MEDS: oxyCODONE HCL 10 MG SUSTAINED ACTING TABLET PO SCH (09:51)
[2017-01-03] MEDS: PANTOPRAZOLE 40 MG TABLET (FP) PO SCH (09:51)
[2017-01-03] MEDS: HYDROCHLOROTHIAZIDE 25 MG TABLET (FP) PO SCH (09:51)
[2017-01-03] MEDS: MULTIVITAMINS (DAILY MVI) TABLET (FP) PO SCH (09:52)
[2017-01-03] MEDS: ASCORBIC ACID 500 MG TABLET (FP) PO SCH (09:52)
[2017-01-03] MEDS: METOPROLOL SUCCINATE 50 MG TAB.SR.24H (FP) PO SCH (09:52)
--- NOTE | 2017-01-05 15:44 | PATH ---
Surgical Pathology Report Patient Name: AFRICA KENDRICK Med. Rec. #: [id number] /Age/Gender: 1940 (Age: 76) / F Account: [id number] Location: [facility] MED-SURG Taken: 12/30/2016 Received: 12/30/2016 Reported: 01/05/2017 Physicians: Danie Osorio M.D. Specimen(s) Received LEFT HIP PROSTHESIS Clinical History Left hip periprosthetic hip fracture Final Diagnosis LEFT HIP PROSTHESIS, REMOVAL: HARDWARE, DESCRIBED I (GROSS EXAMINATION ONLY). Electronically Signed Rocio Buenrostro M.D. Gross Description Received fresh labeled "left hip prosthesis," are 2 [place] metallic portions of hardware measuring 3.5 and 17.5 cm in greatest dimension, as well as a 4.7 cm in greatest dimension white, plastic portion of hardware. The specimens are consistent with a hip prosthesis. No soft tissue is present. No sections are submitted, gross only. 01/03/201701/03/2017
== END 2017-01-03 13:13 | DRG 467 ==
LOC: FM/S 14:28
PROVIDERS: ADMIT Student in an Organized Health Care Education/Training Program; ATTEND Student in an Organized Health Care Education/Training Program
PROC: 0QS904Z Reposition Left Femoral Shaft with Internal Fixation Device, Open Approach (ICD-10-PCS; 2016-12-30)
PROC: 0SWB0JZ Revision of Synthetic Substitute in Left Hip Joint, Open Approach (ICD-10-PCS; principal; 2016-12-30 14:05)
PROC: 30233N1 Transfusion of Nonautologous Red Blood Cells into Peripheral Vein, Percutaneous Approach (ICD-10-PCS; 2016-12-31)
DX: S72.302A Unspecified fracture of shaft of left femur, initial encounter for closed fracture (principal); M97.02XA Periprosthetic fracture around internal prosthetic left hip joint, initial encounter; D62 Acute posthemorrhagic anemia; I10 Essential (primary) hypertension; E78.5 Hyperlipidemia, unspecified; W01.0XXA Fall on same level from slipping, tripping and stumbling without subsequent striking against object, initial encounter; Y93.89 Activity, other specified; Y92.89 Other specified places as the place of occurrence of the external cause; Y99.8 Other external cause status
CPT/HCPCS: 36415; 36430; 73502-TC-LT; 73523-TC; 80048; 85025; 85027; 86850; 86900; 86901; 86922; 88300-TC; 94010; 94760; 97116-GP; 97163; J3490; P9038; P9058